=== PATIENT | female | born 1950 | race Caucasian/White ===

== ENCOUNTER 2016-05-23 09:52 | Day surgery (SDC) | payer MEDICARE, OTHER ==
[2016-05-23] VITALS (7 sets, daily range): BP systolic 97–160; BP diastolic 60–83; PULSE 57–64; RESP 13–20; TEMP 97.4–97.9; O2SAT 97–100; Ht 162.6 cm; Wt 56.4 kg
[~2016-05-23] VITALS: Ht 162.6 cm; Wt 56.4 kg
[~2016-05-23 09:52] MED LIST: ACET-2321 PO; ASPI-557 PO; BUPIVACAINE 0.25%/EPI 1:200,000 30ml SDV ONE; CA C1TAB78 PO; FURO40TA5 PO; GLUC-176 PO; HORS300C PO; LIDOCAINE 1% (10mg/ml) 2ml SDV INJ ONE; LR 1,000 ML IV SCH; POTA99TA24 PO; TURM500C8 PO
--- NOTE | 2016-05-23 10:25 | ANESPREOP ---
Anesthesia Record Date and Time DATE: 05/23/16 TIME: 10:23 Pre-Op Diagnosis cervical intraepithelial neoplasm three Proposed Surgical Procedure CLOD KNIFE CONE BIOPSY NPO since: [place] Allergies: Coded Allergies: No Known Allergies (Unverified , 05/21/16) Ht/Wt/BMI Height: 5 ' 4.00 " Weight: 56.400 kg BMI: 21.3 kg/m2 Vital Signs Date Time Temp Pulse Resp B/P Pulse Ox O2 Delivery O2 Flow Rate FiO2 05/23/16 10:13 97.9 63 13 160/83 100 Room Air Medications Inpatient Medications Current Medications Medications (Trade) Dose Ordered Sig/Colt Start Time Stop Time Status Last Admin Dose Admin Lactated Ringer's (Lactated Ringers) 1,000 ml @ 125 mls/hr Q8H 05/23/16 07:00 Acetaminophen (Tylenol) 325 Mg Tablet, 1-2 TAB PO QID PRN for DISCOMFORT, ( Reported) Aspirin (Aspir 81) 81 Mg Tablet.dr, 1 TAB PO DAILY, (Reported) Ca Carb/Vit D3/Mag Ox/Zn Oxide (Guille Mag Zinc + D3 Tablet) 1 Each Tablet, 1 TAB PO TID, (Reported) Furosemide (Furosemide) 40 Mg Tablet, 1 TAB PO DAILY, (Reported) Glucosamine HCl/Chondr Lynne A Na (Osteo Bi-Flex Caplet) 1 Each Tablet, 1 TAB PO DAILY, (Reported) Glucosamine HCl/Chondr Lynne A Na (Osteo Bi-Flex Caplet) 1 Each Tablet, 1 TAB PO DAILY, (Reported) Horse Altheimer Seed (Horse Altheimer) 300 Mg Capsule, 1 CAP PO DAILY, (Reported) Potassium Gluconate (Potassium) 600 Mg Tablet, 1 TAB PO DAILY, (Reported) Turmeric Root Extract (Turmeric) 500 Mg Capsule, 1,000 MG PO DAILY, (Reported) Currently on Beta Jessica: No Medical/Surgical History Anesthesia PMH: Reports: Arthritis, Thyroid Disease (HYPERTHYROID- RESOLVED), Denies: Anesthesia Reactions (NO AIRWAY ISSUES), Cancer, Clotting Problems, Glaucoma, Malignant Hyperthermia, Renal Disease Smoking Status: Never smoker Substance Use Type: does not use Alcohol Intake: none HX of Last Menstrual Period: AGE 53 Past Surgical History Orthopedic Surgeries: Yes - MITCH. HIP REPLACEMENT Abdominal Surgeries: Yes - APPY, R. INGUINAL HERNIA Genitourinary Surgeries: Cardiac Surgeries: Endocrine Surgeries: Reproductive Surgeries: Yes - TUBAL LIGATION Neurological Surgeries: Ear Surgeries: Nose Surgeries: Throat Surgeries: Other Surgeries: Anesthesia Adverse Reactions: FOUND none Family Hx of Anesthesia Advers: none Hx of Motion Sickness: No Physical Exam Respiratory: Lungs clear Cardiovascular: FOUND Regular rate, rhythm, FOUND No murmur Airway Assessment Mallampati Score: III TMD: 3 Fingerbreadths Neck Extension: Good Teeth: Chipped Teeth/Crowns Overall Assessment: No Airway Concerns ASA: 1 Plan Anesthesia Plan: TIVA Discussion Discussed risks/options/alternatives of anesthesia and questions answered. Patient consents. Nursing pain assessment noted. Attestation Statement Prior to the delivery of any anesthetic medication, I examined the patient, developed the plan, obtained the patient's consent and discussed the risk and benefits of the procedure with the patient/guardian. JEAN-CLAUDE ANDERSON BENEFITS PROCESSOR STUDENT May 23, 2016 10:25
[2016-05-23 10:28] LABS: BASOPHILS # (AUTO) 0.1 T/MM3 (0-0.2); BASOPHILS % (AUTO) 0.8 % (0-2); EOSINOPHILS % (AUTO) 0.6 % (0-4); HCT - HEMATOCRIT 41.6 % (36-46); HGB - HEMOGLOBIN 13.5 GM/DL (12-16); IMMATURE GRANULOCYTE # (AUTO) 0.01 T/MM3 (0.00-0.03); IMMATURE GRANULOCYTE % (AUTO) 0.2 % (0.0-0.5); LYMPHOCYTES # (AUTO) 2.4 T/MM3 (1-4.8); LYMPHOCYTES % (AUTO) 37.5 % (23-45); MEAN CORPUSCULAR HGB 30.8 UUG (26-34); MEAN CORPUSCULAR HGB CONC(MCHC 32.5 GM/DL (31-37); MEAN CORPUSCULAR VOLUME 94.8 UM3 (80-100); MEAN PLATELET VOLUME 10.4 UM3 (9.4-12.4); MONOCYTES # (AUTO) 0.6 T/MM3 (0-0.8); MONOCYTES % (AUTO) 9.1 % (0-9.0); NEUTROPHILS #(AUTO)-ABSOLUTE 3.3 T/MM3 (1.8-7.7); NEUTROPHILS % (AUTO) 51.8 % (33-66); RED BLOOD COUNT 4.39 M/MM3 (4.00-5.20); WBC - WHITE BLOOD COUNT 6.4 T/MM3 (4.5-11.0)
[2016-05-23 10:42] LABS: ANION GAP 10 MEQ/L (5-15); BUN/CREATININE RATIO 20 RATIO (6-26); CHLORIDE 105 MEQ/L (98-107); CO2 - CARBON DIOXIDE 30 MEQ/L (22-30); CREATININE 0.8 MG/DL (0.7-1.2); GLOMERULAR FILTRATION RATE 72; GLUCOSE 102 MG/DL (65-110); SODIUM 145 MEQ/L (134-144)
[2016-05-23] MEDS ORDERED: PROPOFOL 500mg 50 ML IV ONE (11:03)
[2016-05-23] MEDS ORDERED: LIDOCAINE 2% (20mg/ml) 5ml PF SDV ONE (11:03)
[2016-05-23 11:36] LABS: BLOOD, URINE NEGATIVE (NEGATIVE); COLOR,URINE YELLOW (YELLOW); LEUKOCYTE ESTERASE ,URINE NEGATIVE (NEGATIVE); NITRITE,URINE NEGATIVE (NEGATIVE); UROBILINOGEN,URINE 0.2 EU/DL (NORMAL)
[2016-05-23] MEDS ORDERED: PROPOFOL 200mg 20 ML IV ONE (11:48)
--- NOTE | 2016-05-23 12:13 | GYNOPNOTE1 ---
HANDMADE TILE ARTIST Postoperative Note Date of Operation: 05/23/16 Preoperative Dx Comments PreOp Dx: RAMOS 3 Postoperative Diagnosis: Same as Preoperative Procedure: cold knife cone biopsy Surgeon: Soraya Arambula MD Anesthesia Type: TIVA Comments EBL 50cc SORAYA ARAMBULA MD May 23, 2016 12:13
[2016-05-23] MEDS ORDERED: MORPHINE SULFATE 4 MG SYRINGE IV PRN (12:15)
[2016-05-23] MEDS ORDERED: ONDANSETRON 4mg/2ml INJECTION IV PRN (12:15)
[2016-05-23] MEDS ORDERED: FENTANYL 100mcg/2ml INJECTION IV PRN (12:15)
[2016-05-23] MEDS ORDERED: METOCLOPRAMIDE 10mg/2ml INJECTION IV PRN (12:15)
[2016-05-23] MEDS ORDERED: HYDR-4246 PO (12:15)
[2016-05-23] MEDS ORDERED: HYDROCODONE/APAP 5 mg/325 mg TABLET PO PRN (12:15)
--- NOTE | 2016-05-23 13:23 | ANESPO ---
Post-Op Note Date 05/23/16 Time: 13:20 Status Pt Participated in Evaluation: Pt participated in person Vital Signs Date Time Temp Pulse Resp B/P Pulse Ox O2 Delivery O2 Flow Rate FiO2 05/23/16 13:06 64 16 132/68 100 Room Air 05/23/16 12:19 97.5 Respiratory Function: Airway patent, Regular respirations Cardiovascular Function: Regular pulse Pain Level Intensity: 3 Hydration: Taking po fluids Complications during Recovery None apparent Follow-Up Instructions Instructions Per Surgeon JUAN HENRY CRNA May 23, 2016 13:23
--- NOTE | 2016-05-23 19:13 | OPNOTEF ---
DATE OF SURGERY 05/23/2016 PREOPERATIVE DIAGNOSIS RAMOS III. POSTOPERATIVE DIAGNOSIS RAMOS III. PROCEDURE Cold knife cone biopsy. SURGEON Soraya Brandt MD ANESTHESIA TIVA ANESTHESIOLOGIST Palomo Levine CRNA EBL 50 cc DESCRIPTION OF PROCEDURE Ms. Amador was brought to the OR and placed on the OR table in a comfortable supine position. She was given IV analgesia to good effect with adequate airway control. She was then placed in the standard lithotomy position. The perineum and vagina were prepped and draped in the usual sterile fashion and the bladder was drained with a sterile in-and-out catheter. The cervix was visualized with a Freeway speculum. It was grasped with a single-tooth tenaculum. A cervical block was performed at the 3 and 9 o'clock position with 0.25% Marcaine with epinephrine. Stitches of 2-0 Vicryl were placed at the 3 and 9 o'clock positions. Lugol solution was applied to the cervix. I then used a sharp knife to cut a cone biopsy circumferentially surrounding the transformation zone. I felt that we had a good margin of this. I used curved Barrow scissors to cut across the base. This was a fairly generous specimen. It was removed intact. A stitch was placed through the 12 o'clock position for pathologist studies. The base was then oozing. We were wearing viral particle protective air filtration masks so I used electrocautery to help control this. There was still some oozing so I took a 2-0 Vicryl along the posterior half of the cervix and ran a running locking suture across this. At this point hemostasis was under good control. We applied Monsel's solution and continued to monitor. It remained under good control. We then removed our speculum and returned Ms. Amador to the supine position. She was then awakened and transferred to recovery in stable condition. JENNIFER
== END 2016-05-23 13:25 | disposition home or self-care (01) ==
LOC: SCU 09:52
PROVIDERS: ATTEND Obstetrics & Gynecology
DX: D06.0 Carcinoma in situ of endocervix (principal); Z98.51 Tubal ligation status; Z79.1 Long term (current) use of non-steroidal anti-inflammatories (NSAID); Z79.899 Other long term (current) drug therapy
CPT/HCPCS: 36415; 57520; 80048; 81003; 85025; A9270; J2704; J3010; J7120